=== PATIENT | female | born 1960 | race Caucasian/White ===

== ENCOUNTER 2019-05-12 08:31 | Outpatient (CLI) | payer OTHER, SELFPAY ==
--- NOTE | ~2019-05-12 | MM_ITS ---
EXAMINATION: MM screening bunny BI w jonathan HISTORY: Screening mammogram, family history of breast cancer in her sister. TECHNIQUE: Craniocaudal and mediolateral oblique 3-D tomosynthesis images were obtained and synthetic 2-D images were generated. CAD analysis was submitted and interpreted. COMPARISON: 04/29/2018, 04/23/2017, 04/10/2016 BREAST PARENCHYMAL COMPOSITION: There are scattered areas of fibroglandular density. FINDINGS: There is no evidence of suspicious mass, calcification, or architectural distortion to sugg est malignancy in either breast. There has been no suspicious interval change. IMPRESSION: 1. No mammographic evidence of malignancy. 2. Recommend routine screening mammography in one year. BI-RADS Category 1: Negative Reviewed, dictated and finalized at location A.
== END 2019-05-12 08:32 | disposition home or self-care (01) ==
LOC: ANHIMG 08:35
PROVIDERS: PCP Family Medicine; Visit Provider Family Medicine
DX: Z12.31 Encounter for screening mammogram for malignant neoplasm of breast (principal)
CPT/HCPCS: 77063; 77067

== ENCOUNTER 2020-08-16 08:04 | Outpatient (CLI) | payer OTHER, SELFPAY ==
--- NOTE | ~2020-08-16 | MM_ITS ---
EXAMINATION: MM screening bunny BI w jonathan HISTORY: Screening mammogram, family history of breast cancer in her sister. TECHNIQUE: Craniocaudal and mediolateral oblique 3-D tomosynthesis images were obtained and synthetic 2-D images were generated. CAD analysis was submitted and interpreted. COMPARISON: 05/12/2019, 04/29/2018, 04/23/2017 BREAST PARENCHYMAL COMPOSITION: There are scattered areas of fibroglandular density. FINDINGS: There is no evidence of suspicious mass, calcification, or architectural distortion to sugg est malignancy in either breast. There has been no suspicious interval change. IMPRESSION: 1. No mammographic evidence of malignancy. 2. Recommend routine screening mammography in one year. BI-RADS Category 1: Negative Reviewed, dictated and finalized at location A.
== END 2020-08-16 08:05 | disposition home or self-care (01) ==
PROVIDERS: PCP Family Medicine; Visit Provider Physician Assistant
DX: Z12.31 Encounter for screening mammogram for malignant neoplasm of breast (principal)
CPT/HCPCS: 77063; 77067

== ENCOUNTER 2020-12-08 01:03 | Day surgery (SDC) | payer OTHER, SELFPAY ==
[2020-11-26 12:38] VITALS: BMI 25.2
[2020-12-08 07:03] VITALS: BP 115/65; PULSE 80; RESP 18; TEMP 36.1; O2SAT 96; BMI 25.9
[2020-12-08] MEDS: LACTATED RINGERS 1,000 ML 150 ML IV CONT (07:08)
--- NOTE | 2020-12-08 07:09 | WPDGICN ---
Assessment and Plan Assessment and plan (1) FHx: colon cancer: Code(s): Z80.0 - Family history of malignant neoplasm of digestive organs Status: Acute Assessment and Plan: Patient has a family history of colon cancer in both her father and paternal grandmother. Plan is for surveillance colonoscopy at this time in at least 5 year intervals in the future. (2) History of colon polyps: Code(s): Z86.010 - Personal history of colonic polyps Status: Acute Assessment and Plan: Patient has a prior history of adenomatous colon polyps removed in 3 previous colonoscopy. Most recent colonoscopy 2017. Plan is for surveillance colonoscopy at this time. Further recommendations will be given after endoscopy. GI Consult Note Consult date/time: 12/08/20 07:09 HPI: Chanell Whitney is a 60 year old female Presents for screening colonoscopy. Patient has had several speech previous colonoscopies and has had polyps on each of them. Most recent colonoscopy 2017. Patient reports that her current weight appetite bowel movements are normal. She denies abdominal pain. She has had no bleeding. Family history is significant her father and paternal grandmother have had colon cancer. Patient desires neoplasia screening. Review of Systems Review of Systems: All systems reviewed & are unremarkable except as noted in HPI and below PMFSH Past Medical History Medical History Arthralgia Chronic neck pain with history of cervical spinal surgery ROLO (generalized anxiety disorder) Hep C w/o coma, chronic Hep C w/o coma, chronic History of alcohol abuse Hx of drug abuse Hypothyroid obesity Hypothyroidism Surgical History Surgical History H/O excision of lamina of cervical vertebra for decompression of spinal cord History of tonsillectomy Family History Family History Father Carcinoma of colon Family history of diabetes mellitus in first degree relative Family history of coronary artery disease Mother Family history of malignant neoplasm of breast in first degree relative Social History Social History (Updated 10/16/20 @ 17:02 by Griselda Bob) Social History: Smoking status: Former smoker Tobacco type: cigarettes Second hand tobacco smoke exposure: Yes Smoking end date: 04/20/07 Alcohol intake: former Alcohol use details: occasionally Substance use: never Substance use type: does not use Living arrangements: with family Gender identity (if verbalized by the patient): Female Sexual Orientation (if Verbalized by the Patient): Straight or Heterosexual Spiritual care concerns: No Meds Home Medications and Allergies Home Medications Medication Instructions Recorded Confirmed Type lorazepam 0.5 mg tablet 0.5 mg PO BID PRN #60 tablet 02/22/19 12/08/20 Rx diclofenac sodium 1 % topical gel 2 g TOPICAL QID #100 g 01/03/20 12/08/20 Rx lisinopril 5 mg tablet 5 mg PO DAILY #90 tablet 06/25/20 12/08/20 Rx levothyroxine 112 mcg tablet 112 mcg PO DAILY #90 tablet 07/10/20 12/08/20 Rx Allergies Allergy/AdvReac Type Severity Reaction Status Date / Time atorvastatin Allergy Unknown Muscle Verified 12/08/20 06:59 Spasms pregabalin Allergy Unknown Unknown Verified 12/08/20 06:59 Vital Signs Vital Signs - 24 hr 12/08/20 07:03 Temperature 97 F L Pulse Rate 80 Respiratory Rate 18 Blood Pressure 115/65 Pulse Oximetry 96 Exam Narrative: Physical exam reveals patient to be alert. Vital signs are stable. HEENT exam is unremarkable. Patient is anicteric. Lungs are clear to auscultation and percussion. Heart is without murmur or extra sounds. Abdominal exam bowel sounds are present soft nontender with no organomegaly. Digital external rectal exam is normal.
--- NOTE | 2020-12-08 07:10 | WPDANESEPPF ---
Anes - Initial Pre Proc Eval Procedure: Operation Date: 12/08/20 08:00 Proposed Procedures p Screening Colonoscopy - Mauricio Lockett MD Date/Time: 12/08/20 07:10 Surgeon: Mauricio Lockett MD Pre Op Diagnosis: neoplasm screening, family hx of colon cancer Patient Data Age: 60 Gender: F Height: 1.5 m Weight: 58.2 kg Last Vital Signs Temp 36.1 C L 12/08/20 07:03 Pulse 80 12/08/20 07:03 Resp 18 12/08/20 07:03 BP 115/65 12/08/20 07:03 Pulse Ox 96 12/08/20 07:03 Allergies Allergy/AdvReac Type Severity Reaction Status Date / Time atorvastatin Allergy Unknown Muscle Verified 12/08/20 06:59 Spasms pregabalin Allergy Unknown Unknown Verified 12/08/20 06:59 Home Medications Medication Instructions Recorded Confirmed Type lorazepam 0.5 mg tablet 0.5 mg PO BID PRN #60 tablet 02/22/19 12/08/20 Rx diclofenac sodium 1 % topical gel 2 g TOPICAL QID #100 g 01/03/20 12/08/20 Rx lisinopril 5 mg tablet 5 mg PO DAILY #90 tablet 06/25/20 12/08/20 Rx levothyroxine 112 mcg tablet 112 mcg PO DAILY #90 tablet 07/10/20 12/08/20 Rx Patient hx anesthesia problems: none Family hx anesthesia problems: none Results Review: All pre-operative results and documents have been reviewed as part of the pre-operative evaluation. COUNTS INCLUDE 234 BEDS AT THE [facility] Past Medical History Medical History Arthralgia Chronic neck pain with history of cervical spinal surgery ROLO (generalized anxiety disorder) Hep C w/o coma, chronic Hep C w/o coma, chronic History of alcohol abuse Hx of drug abuse Hypothyroid obesity Hypothyroidism Surgical History Surgical History H/O excision of lamina of cervical vertebra for decompression of spinal cord History of tonsillectomy Family History Family History Father Carcinoma of colon Family history of diabetes mellitus in first degree relative Family history of coronary artery disease Mother Family history of malignant neoplasm of breast in first degree relative Social History Social History Social History: Smoking status: Former smoker Tobacco type: cigarettes Second hand tobacco smoke exposure: Yes Smoking end date: 04/20/07 Alcohol intake: former Alcohol use details: occasionally Substance use: never Substance use type: does not use Living arrangements: with family Gender identity (if verbalized by the patient): Female Sexual Orientation (if Verbalized by the Patient): Straight or Heterosexual Spiritual care concerns: No Anes - Eval Final PreProcedure Day of Procedure 12/08/20 07:10 Patient weight: overweight Heart: regular rate and rhythm Lungs: clear to auscultation Airway: Mallampati scale class II Neurological: alert and oriented Last oral intake: >/= 8 hours ASA classification: III Emergent: no Anesthetic plan: proceed Anesthesia type and monitoring: general GIVS and standard monitoring Results Review: All pre-operative results and documents have been reviewed as part of the pre-operative evaluation. Informed Consent: The patient's anesthetic plan and its attendant risks and benefits were discussed with the patient/family/POA. Questions were solicited and answers provided to the satisfaction of the patient/family/POA.
[2020-12-08 08:18] VITALS: BP 102/62; PULSE 73; RESP 21; O2SAT 100
[2020-12-08 08:28] VITALS: BP 125/80; PULSE 92; RESP 29; O2SAT 100
[2020-12-08 08:38] VITALS: BP 115/79; PULSE 70; RESP 18; O2SAT 100
== END 2020-12-08 08:49 | disposition home or self-care (01) ==
PROVIDERS: PCP Family Medicine; Visit Provider Internal Medicine Gastroenterology
PROC: 0DJD8ZZ Inspection of Lower Intestinal Tract, Via Natural or Artificial Opening Endoscopic (ICD-10-PCS; CPT 45378; principal; 2020-12-08 08:00)
DX: Z12.11 Encounter for screening for malignant neoplasm of colon (principal); Z80.0 Family history of malignant neoplasm of digestive organs; K63.5 Polyp of colon; D12.7 Benign neoplasm of rectosigmoid junction; D12.2 Benign neoplasm of ascending colon; D12.4 Benign neoplasm of descending colon; F41.1 Generalized anxiety disorder; B18.2 Chronic viral hepatitis C; E03.9 Hypothyroidism, unspecified; Z87.891 Personal history of nicotine dependence
CPT/HCPCS: 45385; 88305; J2001; J2704; J7120

== ENCOUNTER 2021-06-11 00:48 | Day surgery (SDC) | payer OTHER, SELFPAY ==
[2021-06-01 13:16] VITALS: BMI 28.0
[2021-06-11 10:10] VITALS: BP 127/67; PULSE 70; RESP 18; TEMP 36.8; O2SAT 100; BMI 27.8
[2021-06-11] MEDS: LACTATED RINGERS 1,000 ML 150 ML IV CONT (10:26)
--- NOTE | 2021-06-11 11:01 | WPDANESEPPF ---
Anes - Initial Pre Proc Eval Procedure: Operation Date: 06/11/21 11:00 Proposed Procedures p Esophagogastroduodenoscopy - Mauricio Lockett MD Date/Time: 06/11/21 11:01 Surgeon: Mauricio Lockett MD Pre Op Diagnosis: GERD Patient Data Age: 61 Gender: F Height: 1.47 m Weight: 60.3 kg Last Vital Signs Temp 98.3 F 06/11/21 10:10 Pulse 70 06/11/21 10:10 Resp 18 06/11/21 10:10 BP 127/67 06/11/21 10:10 Pulse Ox 100 06/11/21 10:10 Allergies Allergy/AdvReac Type Severity Reaction Status Date / Time atorvastatin Allergy Unknown Muscle Verified 06/11/21 10:18 Spasms pregabalin Allergy Unknown Unknown Verified 06/11/21 10:18 Home Medications Medication Instructions Recorded Confirmed Type lorazepam 0.5 mg tablet 0.5 mg PO BID PRN #60 tablet 02/22/19 06/11/21 Rx levothyroxine 112 mcg tablet 112 mcg PO DAILY #90 tablet 12/24/20 06/11/21 Rx diclofenac sodium 1 % topical gel 2 g TOPICAL QID #100 g 05/04/21 06/11/21 Rx pantoprazole 40 mg tablet,delayed 40 mg PO QAM #30 tablet 05/05/21 06/11/21 Rx release lorazepam 0.5 mg tablet 0.5 mg PO BID PRN #60 tablet 05/06/21 06/11/21 Rx celecoxib 200 mg PO DAILY 06/01/21 06/11/21 History lisinopril [Zestril] 5 mg PO DAILY 06/01/21 06/11/21 History Patient hx anesthesia problems: none Family hx anesthesia problems: none Results Review: All pre-operative results and documents have been reviewed as part of the pre-operative evaluation. [facility] Past Medical History Medical History Arthralgia Chronic neck pain with history of cervical spinal surgery ROLO (generalized anxiety disorder) Hep C w/o coma, chronic Hep C w/o coma, chronic History of alcohol abuse Hx of drug abuse Hypothyroid obesity Hypothyroidism Surgical History Surgical History H/O excision of lamina of cervical vertebra for decompression of spinal cord History of tonsillectomy Family History Family History Father Carcinoma of colon Family history of diabetes mellitus in first degree relative Family history of coronary artery disease Mother Family history of malignant neoplasm of breast in first degree relative Social History Social History (Updated 05/05/21 @ 16:00 by Griselda Bob) Social History: Smoking status: Former smoker Tobacco type: cigarettes Second hand tobacco smoke exposure: Yes Smoking end date: 04/20/07 Alcohol intake: former Alcohol use details: occasionally Substance use: former Substance use type: heroin Other substance usage details: recovering heroin addict Last use: 26 years ago Living arrangements: with family Gender identity (if verbalized by the patient): Female Sexual Orientation (if Verbalized by the Patient): Straight or Heterosexual Spiritual care concerns: No Anes - Eval Final PreProcedure Day of Procedure 06/11/21 11:01 Patient weight: normal Heart: regular rate and rhythm Lungs: clear to auscultation Airway: Mallampati scale class II Neurological: alert and oriented Last oral intake: >/= 8 hours ASA classification: III Emergent: no Anesthetic plan: proceed Anesthesia type and monitoring: general GIVS and standard monitoring Results Review: All pre-operative results and documents have been reviewed as part of the pre-operative evaluation. Informed Consent: The patient's anesthetic plan and its attendant risks and benefits were discussed with the patient/family/POA. Questions were solicited and answers provided to the satisfaction of the patient/family/POA.
--- NOTE | 2021-06-11 11:03 | WPDGICN ---
Assessment and Plan Assessment and plan (1) Atypical chest pain: Code(s): R07.89 - Other chest pain Status: Acute Assessment and Plan: patient with atypical chest pain potentially related to acid reflux. History is difficult to be certain of the etiology. An EGD to assess pain is anticipated. (2) GERD (gastroesophageal reflux disease): Code(s): K21.9 - Gastro-esophageal reflux disease without esophagitis Status: Acute Assessment and Plan: Patient reports some regurgitation that is suspicious for acid reflux. She appears to have a component of dysphagia as well. Plan is for EGD to assess more thoroughly. Agree with trial of pantoprazole daily. (3) History of colon polyps: Code(s): Z86.010 - Personal history of colonic polyps Status: Acute Assessment and Plan: Patient has a history of colon polyps in 2020. Plan is for surveillance colonoscopy at 5 year intervals. (4) FHx: colon cancer: Code(s): Z80.0 - Family history of malignant neoplasm of digestive organs Status: Acute GI Consult Note Consult date/time: 06/11/21 11:03 HPI: Chanell Whitney is a 61 year old female Presents for EGD. Patient reports intense chest pain several months ago. Since that time she has had regurgitation. Has had some difficulty swallowing she. She states food will catch in hang up in the mid chest. She reports phlegm that regurgitates frequently. The history is somewhat difficult to obtain but may have improved after a trial of pantoprazole over the last 1 month. An EGD is requested to further define and exclude acid reflux contributing to her symptoms. Apparently a myocardial infarction was excluded by EKG. Review of Systems Review of Systems: All systems reviewed & are unremarkable except as noted in HPI and below PMFSH Past Medical History Medical History Arthralgia Chronic neck pain with history of cervical spinal surgery ROLO (generalized anxiety disorder) Hep C w/o coma, chronic Hep C w/o coma, chronic History of alcohol abuse Hx of drug abuse Hypothyroid obesity Hypothyroidism Surgical History Surgical History H/O excision of lamina of cervical vertebra for decompression of spinal cord History of tonsillectomy Family History Family History Father Carcinoma of colon Family history of diabetes mellitus in first degree relative Family history of coronary artery disease Mother Family history of malignant neoplasm of breast in first degree relative Social History Social History (Updated 05/05/21 @ 16:00 by Griselda Bob) Social History: Smoking status: Former smoker Tobacco type: cigarettes Second hand tobacco smoke exposure: Yes Smoking end date: 04/20/07 Alcohol intake: former Alcohol use details: occasionally Substance use: former Substance use type: heroin Other substance usage details: recovering heroin addict Last use: 26 years ago Living arrangements: with family Gender identity (if verbalized by the patient): Female Sexual Orientation (if Verbalized by the Patient): Straight or Heterosexual Spiritual care concerns: No Meds Home Medications and Allergies Home Medications Medication Instructions Recorded Confirmed Type lorazepam 0.5 mg tablet 0.5 mg PO BID PRN #60 tablet 02/22/19 06/11/21 Rx levothyroxine 112 mcg tablet 112 mcg PO DAILY #90 tablet 12/24/20 06/11/21 Rx diclofenac sodium 1 % topical gel 2 g TOPICAL QID #100 g 05/04/21 06/11/21 Rx pantoprazole 40 mg tablet,delayed 40 mg PO QAM #30 tablet 05/05/21 06/11/21 Rx release lorazepam 0.5 mg tablet 0.5 mg PO BID PRN #60 tablet 05/06/21 06/11/21 Rx celecoxib 200 mg PO DAILY 06/01/21 06/11/21 History lisinopril [Zestril] 5 mg PO DAILY 06/01/21 06/11/21 History Allergies
[2021-06-11] MEDS: BENZOCAINE (*SP) 60 ML SPRAY CAN (HURRICAINE) 1 SPRAY MUCOUS MEM (11:16)
[2021-06-11 11:26] VITALS: BP 111/83; PULSE 84; RESP 24; O2SAT 100
[2021-06-11 11:36] VITALS: BP 116/71; PULSE 78; RESP 16; O2SAT 100
[2021-06-11 11:46] VITALS: BP 116/78; PULSE 76; RESP 18; O2SAT 100
--- NOTE | 2021-06-11 11:52 | SUR.PHASEII ---
1148 DR SALAS NOTIFIED OF POSITIVE H PYLORI RESULTS. DR SALAS TO WRITE A PRESCRIPTION FOR PT
== END 2021-06-11 12:00 | disposition home or self-care (01) ==
PROVIDERS: PCP Family Medicine; Visit Provider Internal Medicine Gastroenterology
PROC: 0DJ08ZZ Inspection of Upper Intestinal Tract, Via Natural or Artificial Opening Endoscopic (ICD-10-PCS; CPT 43235; principal; 2021-06-11 11:00)
DX: K21.9 Gastro-esophageal reflux disease without esophagitis (principal); R13.10 Dysphagia, unspecified; R07.89 Other chest pain; Z80.0 Family history of malignant neoplasm of digestive organs; Z86.010 Personal history of colon polyps; E03.9 Hypothyroidism, unspecified; B18.2 Chronic viral hepatitis C; F41.1 Generalized anxiety disorder; Z87.891 Personal history of nicotine dependence; F11.21 Opioid dependence, in remission
CPT/HCPCS: 43239; 43450; 87081; J2704; J7120

== ENCOUNTER 2021-12-04 17:10 | Outpatient (CLI) | payer OTHER, SELFPAY ==
--- NOTE | ~2021-12-04 | XR_ITS ---
EXAMINATION: XR hip RT min 2V DATE: 12/04/2021 17:28 INDICATION: Right hip pain. TECHNIQUE: 3 views of right hip were obtained. COMPARISON: None. FINDINGS: There is lumbar levocurvature and severe lower lumbar spondylosis. No fracture. There is mi ld right hip osteoarthritis. IMPRESSION: 1. Mild right hip osteoarthritis. Reviewed, dictated and finalized at location A.
== END 2021-12-04 17:11 | disposition home or self-care (01) ==
LOC: ANHIMG 17:12
PROVIDERS: PCP Family Medicine; Visit Provider Nurse Practitioner Gerontology
DX: M16.11 Unilateral primary osteoarthritis, right hip (principal)
CPT/HCPCS: 73502

== ENCOUNTER 2022-02-13 10:58 | Outpatient (CLI) | payer OTHER, SELFPAY ==
--- NOTE | ~2022-02-13 | MM_ITS ---
EXAMINATION: MM screening bunny BI w jonathan HISTORY: Screening TECHNIQUE: Craniocaudal and mediolateral oblique 3-D tomosynthesis images were obtained and synthetic 2-D images were generated. CAD analysis was submitted and interpreted. COMPARISON: Comparison to multiple prior studies sequentially, with oldest reviewed study dated 04/02. BREAST PARENCHYMAL COMPOSITION: There are scattered areas of fibroglandular density. FINDINGS: There is no evidence of suspicious mass, calcification, or architectural distortion to sugg est malignancy in either breast. There has been no suspicious interval change. IMPRESSION: 1. No mammographic evidence of malignancy. 2. Recommend routine screening mammography in one year. BI-RADS Category 1: Negative Reviewed, dictated and finalized at location B. [employer]
== END 2022-02-13 10:59 | disposition home or self-care (01) ==
LOC: ANHIMG 11:00
PROVIDERS: PCP Family Medicine; Visit Provider Nurse Practitioner Gerontology
DX: Z12.31 Encounter for screening mammogram for malignant neoplasm of breast (principal)
CPT/HCPCS: 77063; 77067

== ENCOUNTER 2022-07-30 16:42 | Outpatient (CLI) | payer OTHER, SELFPAY ==
--- NOTE | ~2022-07-30 | XR_ITS ---
EXAMINATION: XR shoulder RT min 2V DATE: 07/30/2022 17:09 INDICATION: Right shoulder pain. TECHNIQUE: 4 views of right shoulder were obtained. COMPARISON: None. FINDINGS: Bone alignment is normal. No fracture. There is mild osteoarthritis of glenohumeral joint a nd severe osteoarthritis of acromioclavicular joint. There are changes of anterior and posterior fusi on procedures in cervical spine. IMPRESSION: 1. Polyarticular osteoarthritis. Reviewed, dictated and finalized at location E.
== END 2022-07-30 16:43 | disposition home or self-care (01) ==
PROVIDERS: PCP Family Medicine; Visit Provider Family Medicine
DX: M19.011 Primary osteoarthritis, right shoulder (principal)
CPT/HCPCS: 73030

== ENCOUNTER 2023-06-24 07:28 | Outpatient (CLI) | payer OTHER, SELFPAY ==
--- NOTE | ~2023-06-24 | MM_ITS ---
EXAMINATION: MM screening bunny BI w jonathan HISTORY: Screening TECHNIQUE: Craniocaudal and mediolateral oblique 3-D tomosynthesis images were obtained and synthetic 2-D images were generated. CAD analysis was submitted and interpreted. COMPARISON: Comparison to multiple prior studies sequentially, with oldest reviewed study dated 09/2019. BREAST PARENCHYMAL COMPOSITION: Not dense: There are scattered areas of fibroglandular density. FINDINGS: There is no evidence of suspicious mass, calcification, or architectural distortion to sugg est malignancy in either breast. There has been no suspicious interval change. IMPRESSION: 1. No mammographic evidence of malignancy. 2. Recommend routine screening mammography in one year. BI-RADS Category 1: Negative Reviewed, dictated and finalized at location B.
== END 2023-06-24 07:29 | disposition home or self-care (01) ==
LOC: ANHIMG 07:31
PROVIDERS: PCP Family Medicine; Visit Provider Physician Assistant
DX: Z12.31 Encounter for screening mammogram for malignant neoplasm of breast (principal)
CPT/HCPCS: 77063; 77067

== ENCOUNTER 2024-04-30 07:49 | Outpatient (NON) | payer OTHER, SELFPAY ==
--- OUTSIDE RECORDS SUMMARY | 2024-05-01 07:57 | XMS_ITS | Patient Health Summary ---
Author Organization [facility] Address [address] [place] [address] Care Team Providers Care Neurology Manager Name Role Phone Jayla Gaxiola MD Primary Care Provider + Note from [facility],non-owned Affiliates and Associated Physician Practices is amultiple site organization consisting of ambulatory clinics and hospital sitesin [place], [place], [place] and [place]. This disclosure is being madepursuant to the Care Everywhere program and may not contain all information available regarding this patient. Last updated 17.[facility] Social History Tobacco Use Types Packs/Day Years Used Date Smoking Tobacco: Never Assessed Sex and Gender Information Value Date Recorded Sex Assigned at Not on file Gender Identity Not on file Sexual Orientation Not on file Care Teams Neurology Manager Relationship Specialty Start Date End Date Jayla Gaxiola MD [address] [facility] [address] [place] [address] PCP - General 05/20/09
--- OUTSIDE RECORDS SUMMARY | 2024-05-01 07:57 | XMS_ITS | Clinical Summary ---
Author Organization [facility] Address [address] [facility] [place] [address] Care Team Providers Care Brusher Machine Name Role Phone Jayla Gaxiola MD Primary Care Provider + Source Comments [facility],non-owned Affiliates and Associated Physician Practices is amultiple site organization consisting of ambulatory clinics and hospital sitesin [place], [place] and [place]. This disclosure is being madepursuant to the Care Everywhere program and may not contain all information available regarding this patient. Last updated 17.[facility] [employer] Social History Tobacco Use Types Packs/Day Years [...] age to complete this topic Care Teams Brusher Machine Relationship Specialty Start Date End Date Jayla Gaxiola MD [address] [place] [address] PCP - General 05/20/09
--- OUTSIDE RECORDS SUMMARY | 2024-05-01 07:57 | XMS_ITS | Clinical Summary ---
Author Organization [facility] [address] [place] [phone] Care Team Providers Care Asphalt Tar And Gravel Roofer Name Role Phone Jayla Gaxiola MD Primary [...] taken. Assessment & Plan (04/06/2018 2:09 PM CONSULTING PRACTICE MANAGER): Your goal of treatment is to keep TSH , T3 and T4 within normal range. Options of treatment, include LT 4 ( levothyroxine ) ,combination LT 4 plus T3 ( Levothyroxine + Liothyronine ) and natural hormonal preparations, including [place], Westhroid, etc. Well conducted clinical studies have not shown any difference in outcomes, in terms of symptoms when comparing these different options. Some patients Taking one or other form of treatment still manifest a variety of symptoms, in spite of normal thyroid hormone levels. At an individual levels, some patient feel better with some specific preparation, including [place]. However, many symptoms persist in patient, regardless [...] 01/12/2018 Assessment & Plan (01/12/2018 4:41 PM CONSULTING PRACTICE MANAGER): As indicated by a elevated TPO antibodies [...] on file Legal Sex Female 3:19 PM CONSULTING PRACTICE MANAGER Gender Identity Not on file Sexual Orientation [...] Plan of Treatment Not on file Insurance [employer] OPEN ACCESS Care Teams Asphalt Tar And Gravel Roofer Relationship Specialty Start Date End Date Jayla Gaxiola MD [address] [facility] [address] [place] [address] PCP - General Family Medicine 01/06/18
--- OUTSIDE RECORDS SUMMARY | 2024-05-01 07:57 | XMS_ITS | Referral Summary ---
Author Organization [facility] [address] [place] [phone] Care Team Providers Care Insurance Risk Surveyor Name Role Phone Jayla Gaxiola MD Primary [...] taken. Assessment & Plan (04/06/2018 2:09 PM TRANSCRIBING MACHINE MECHANIC): Your goal of treatment is to keep TSH , T3 and T4 within normal range. Options of treatment, include LT 4 ( levothyroxine ) ,combination LT 4 plus T3 ( Levothyroxine + Liothyronine ) and natural hormonal preparations, including [place], Westhroid, etc. Well conducted clinical studies have not shown any difference in outcomes, in terms of symptoms when comparing these different options. Some patients Taking one or other form of treatment still manifest a variety of symptoms, in spite of normal thyroid hormone levels. At an individual levels, some patient feel better with some specific preparation, including [place]. However, many symptoms persist in patient, regardless [...] 01/12/2018 Assessment & Plan (01/12/2018 4:41 PM TRANSCRIBING MACHINE MECHANIC): As indicated by a elevated TPO antibodies [...] on file Legal Sex Female 3:19 PM TRANSCRIBING MACHINE MECHANIC Gender Identity Not on file Sexual Orientation [...] Plan of Treatment Not on file Insurance [employer] OPEN ACCESS Care Teams Insurance Risk Surveyor Relationship Specialty Start Date End Date Jayla Gaxiola MD [address] [facility] [address] [place] [address] PCP - General Family Medicine 01/06/18
--- OUTSIDE RECORDS SUMMARY | 2024-05-01 07:57 | XMS_ITS | Referral Summary ---
Author Organization [facility] Address [address] [facility] [place] [address] Care Team Providers Care Personal Computer Specialist Name Role Phone Jayla Gaxiola MD Primary Care Provider + Source Comments [facility],non-owned Affiliates and Associated Physician Practices is amultiple site organization consisting of ambulatory clinics and hospital sitesin [place], [place], [place] and [place]. This disclosure is being madepursuant to the Care Everywhere program and may not contain all information available regarding this patient. Last updated 17.[facility] Social History Tobacco Use Types Packs/Day Years Used Date Smoking Tobacco: Never Assessed Sex and Gender Information Value Date Recorded Sex Assigned at Not on file Gender Identity Not on file Sexual Orientation Not on file Plan of Treatment Not on file Care Teams Personal Computer Specialist Relationship Specialty Start Date End Date Jayla Gaxiola MD [address] [facility] [address] [place] [address] [facility] - General 05/20/09
== END 2024-04-30 07:50 | disposition home or self-care (01) ==
PROVIDERS: PCP Family Medicine; Visit Provider Internal Medicine Gastroenterology
DX: D12.2 Benign neoplasm of ascending colon (principal); D12.3 Benign neoplasm of transverse colon
CPT/HCPCS: 88305

== ENCOUNTER 2024-04-30 09:39 | Day surgery (SDC) | payer OTHER, SELFPAY ==
[2024-02-06 07:42] VITALS: BMI 28.8
--- NOTE | 2024-04-30 07:01 | P.PNAN_ITS ---
Anes - Initial Pre Proc Eval Procedure: Operation Date: 04/30/24 11:30 Proposed Procedures p Diagnostic Colonoscopy - Phil Hill MD Date/Time: 04/30/24 07:01 Surgeon: Phil Hill MD Pre Op Diagnosis: Family HX of Colon Cancer. Personal HX of Polyps. Patient Data Age: 64 Gender: F Height: 1.47 m Weight: 59 kg Allergies Allergy/AdvReac Type Severity Reaction Status Date / Time atorvastatin Allergy Unknown Muscle Verified 04/30/24 10:33 Spasms pregabalin Allergy Unknown Unknown Verified 04/30/24 10:33 Home Medications ?Medication ?Instructions ?Recorded ?Confirmed ?Type diclofenac sodium 1 % topical gel 2 g topical QID #100 grams 05/04/21 04/30/24 Rx lisinopril 5 mg tablet See Rx Instructions .Route 11/04/23 04/30/24 Rx .COMPLEX #90 tabs ezetimibe 10 mg tablet See Rx Instructions .Route 01/13/24 04/30/24 Rx .COMPLEX #90 tabs pravastatin 20 mg tablet See Rx Instructions .Route 02/15/24 04/30/24 Rx .COMPLEX #90 tabs lorazepam 0.5 mg tablet 0.5 mg PO BID PRN anxiety #60 tabs 03/09/24 04/30/24 Rx levothyroxine 100 mcg tablet See Rx Instructions .Route 04/06/24 04/30/24 Rx .COMPLEX #90 tabs omega 4-[id number]-fish oil 1,000 mg 1 cap PO DAILY 04/11/24 04/30/24 History (120 mg-180 mg) capsule (Fish Oil) Patient hx anesthesia problems: none Family hx anesthesia problems: none Results Review: All pre-operative results and documents have been reviewed as part of the pre- operative evaluation. [facility] Past Medical History Medical History Hypothyroidism ROLO (generalized anxiety disorder) History of alcohol abuse Hx of drug abuse Hep C w/o coma, chronic Hypothyroid obesity Chronic neck pain with history of cervical spinal surgery Hep C w/o coma, chronic Arthralgia Surgical History Surgical History History of tonsillectomy H/O excision of lamina of cervical vertebra for decompression of spinal cord Family History Family History Father Carcinoma of colon Family history of diabetes mellitus in first degree relative Family history of coronary artery disease Mother Family history of malignant neoplasm of breast in first degree relative Social History Social History Social History: Smoking status: Former smoker Tobacco type: cigarettes Second hand tobacco smoke exposure: Yes Smoking end date: 04/20/07 Additional smoking assessment comments: quit 17 years ago Alcohol intake: current Drinks per week: 1 Alcohol use details: occasionally Substance use: former Substance use type: does not use Other substance usage details: recovering heroin addict Last use: 26 years ago Lack of Transportation: No Lack of Food: Never True Current Housing: I Have Housing Concerned About Future Housing: No Difficulty Paying Gas/Electric Bills: No Difficulty Paying for Meds: No Currently Unemployed: No Education: Decline to Answer Difficulty w/ Childcare or Family Care: No Living arrangements: with family Occupation/Education: occupation Gender identity (if verbalized by the patient): Female Sexual Orientation (if Verbalized by the Patient): Straight or Heterosexual Spiritual care concerns: No Anes - Eval Final PreProcedure Day of Procedure 04/30/24 07:01 Patient weight: overweight Heart: regular rate and rhythm Lungs: clear to auscultation Airway: Mallampati scale class II Neurological: alert and oriented Last oral intake: >/= 8 hours ASA classification: III Emergent: no Anesthetic plan: proceed Anesthesia type and monitoring: general GIVS and standard monitoring Results Review: All pre-operative results and documents have been reviewed as part of the pre- operative evaluation. Informed Consent: The patient's anesthetic plan and its attendant risks and benefits were discussed with the patient/family/POA. Questions were solicited and answers provided to the satisfaction of the patient/family/POA.
[2024-04-30 10:30] VITALS: BP 119/82; PULSE 89; RESP 16; TEMP 36.9; O2SAT 99
[2024-04-30] MEDS: LACTATED RINGERS 1,000 ML 150 ML IV CONT (10:48)
--- OUTSIDE RECORDS SUMMARY | 2024-04-30 11:13 | XMS_ITS | Clinical Summary ---
[facility] Organization [facility] [address] [place] [phone] Care Team Providers Care Co Founder And Chief Strategy Officer Name Role Phone Jayla Gaxiola MD Primary Care Provider Allergies No known active allergies Medications levothyroxine (SYNTHROID, LEVOTHROID) 100 mcg tablet Take one tablet daily 90 tablet 2 02/07/2018 Active atorvastatin (LIPITOR) 20 mg tablet Take 1 tablet (20 mg total) by mouth daily. 30 tablet 11 04/06/2018 Active Active Problems Problem Noted Date Diagnosed Date Pure hypercholesterolemia 05/18/2018 Assessment & Plan (05/18/2018 3:32 PM CDT): Check fasting lipids Adjust lipitor as indicated. Postablative hypothyroidism 01/12/2018 Assessment & Plan (05/18/2018 3:32 PM CDT): Will check TSH and free T4 Will adjust dose of Levothyroxine accordingly . If there is a need to make changes, will recheck levels in 2-3 months. Instructions to patient on taking medication properly : in the morning, on an empty stomach , 1 h part from food and/or other meds. If any doses are missed, can take 2-3 tab together ,to make up for the missed dose; make sure at the end to the week, 7 tabs have been taken. Assessment & Plan (04/06/2018 2:09 PM FEED ELEVATOR WORKER): Your goal of treatment is to keep TSH , T3 and T4 within normal range. Options of treatment, include LT 4 ( levothyroxine ) ,combination LT 4 plus T3 ( Levothyroxine + Liothyronine ) and natural hormonal preparations, including Joaquin, Westhroid, etc. Well conducted clinical studies have not shown any difference in outcomes, in terms of symptoms when comparing these different options. Some patients Taking one or other form of treatment still manifest a variety of symptoms, in spite of normal thyroid hormone levels. At an individual levels, some patient feel better with some specific preparation, including Joaquin. However, many symptoms persist in patient, regardless of the form of treatment. Adjustments can always make to the dosages and the kind of preparation to use, as long as thyroid levels are within within range. Bringing the thyroid levels to supraphysiologic doses ( above normal ) is strongly recommended against , due to the high risk of side effects, including cardiac dysrhythmias ( irregular heart beat ) and bone density loss . Take your thyroid medication on empty stomach, preferably in the morning, 1 hour apart from food and other medications. Due to the narrow therapeutic range of Levothyroxine ( small changes in dose make a big difference on thyroid medication blood levels ) , brand name is strongly recommended. The medication should be taken daily. If one or more pills are missing in a week, they can be taken all together at once, making sure at the end of the week, all 7 tabs have been taken. I have advise Ms. Whitney to continue cytomel and to split it m 10 mcg is twice a day Continue Synthroid 100 mcg daily Will recheck thyroid function tests in 2 months and will adjust according Britany's thyroiditis 01/12/2018 Assessment & Plan (01/12/2018 4:41 PM FEED ELEVATOR WORKER): As indicated by a elevated TPO antibodies new I spoke to the patient that there is no specific treatment for this other done bringing the thyroid levels to normal range A thyroid ultrasound, shows a very atrophic gland today with multiple micro cysts without any dominant nodule over 1 cm in size. I explained to the patient that the ongoing thyroiditis sometimes causes discomfort and choking sensation around the neck Medical History Medical History Date Comments Hypothyroidism Britany's thyroiditis Family History Medical History Relation Name Comments Cancer Father colon Diabetes Father Hypertension Father Migraines Father Cancer Mother breast and stom ach Diabetes Sister Marielena Hypertension Sister Marielena Relation Name Status Comments Father Mother Sister Marielena Alive Social History Tobacco Use Types Packs/Day Years Used Date Smoking Tobacco: Never Alcohol Use Standard Drinks/Week Comments Yes 0 (1 standard drink = 0.6 oz pur e alcohol) PHQ-2 Answer Date Recorded PHQ-2 Score 0 10/26/2018 Personal Safety Answer Date Recorded Getting School Help Needed Not on file 05/20 Comments Unknown Sex and Gender Information Value Date Recorded Sex Assigned at Not on file Legal Sex Female 3:19 PM FEED ELEVATOR WORKER Gender Identity Not on file Sexual Orientation Not on file Obstetrics History Last Filed Vital Signs Vital Sign Reading Time Taken Comments Blood Pressure 118/80 05/18/2018 3:16 PM CDT Pulse 93 05/18/2018 3:16 PM CDT Temperature - - Respiratory Rate 12 05/18/2018 3:16 PM CDT Oxygen Saturation - - Inhaled Oxygen Concentration - - Weight 60.8 kg (134 lb) 05/18/2018 3:16 PM CDT Height 151.1 cm (4' 11.5 ) 05/18/2018 3:16 PM CD T Body Mass Index 26.61 05/18/2018 3:16 PM CDT Plan of Treatment Not on file Insurance Stat OPEN ACCESS Care Teams Co Founder And Chief Strategy Officer Relationship Specialty Start Date End Date Jayla Gaxiola MD [address] [facility] [address] [place] [address] PCP - General Family Medicine 01/06/18
--- OUTSIDE RECORDS SUMMARY | 2024-04-30 11:13 | XMS_ITS | Referral Summary ---
Author Organization [facility] [address] [place] [phone] Care Team Providers Care Petroleum Terminal Plant Operator Name Role Phone Jayla Gaxiola MD Primary [...] taken. Assessment & Plan (04/06/2018 2:09 PM QUEEN'S COUNSEL): Your goal of treatment is to keep TSH , T3 and T4 within normal range. Options of treatment, include LT 4 ( levothyroxine ) ,combination LT 4 plus T3 ( Levothyroxine + Liothyronine ) and natural hormonal preparations, including [place], Westhroid, etc. Well conducted clinical studies have not shown any difference in outcomes, in terms of symptoms when comparing these different options. Some patients Taking one or other form of treatment still manifest a variety of symptoms, in spite of normal thyroid hormone levels. At an individual levels, some patient feel better with some specific preparation, including [place]. However, many symptoms persist in patient, regardless [...] 01/12/2018 Assessment & Plan (01/12/2018 4:41 PM QUEEN'S COUNSEL): As indicated by a elevated TPO antibodies [...] discomfort and choking sensation around the neck Social History Tobacco Use Types Packs/Day Years [...] on file Legal Sex Female 3:19 PM QUEEN'S COUNSEL Gender Identity Not on file Sexual Orientation Not on file Last Filed Vital Signs Vital Sign Reading [...] Plan of Treatment Not on file Insurance [employer] OPEN ACCESS Care Teams Petroleum Terminal Plant Operator Relationship Specialty Start Date End Date Jayla Gaxiola MD [address] [facility] [[email or web address] [address] [place] [address] PCP - General Family Medicine 01/06/18
--- OUTSIDE RECORDS SUMMARY | 2024-04-30 11:13 | XMS_ITS | Referral Summary ---
Author Organization [facility] Address [address] [facility] [place] [address] Care Team Providers Care Patient Accounting Representative Name Role Phone Jayla Gaxiola MD Primary Care Provider + Source Comments [facility],non-owned Affiliates and Associated Physician Practices is amultiple site organization consisting of ambulatory clinics and hospital sitesin [place], [place], [place] and [place]. This disclosure is being madepursuant to the Care Everywhere program and may not contain all information available regarding this patient. Last updated 17.[facility] Social History Tobacco Use Types Packs/Day Years Used Date Smoking Tobacco: Never Assessed Sex and Gender Information Value Date Recorded Sex Assigned at Not on file Gender Identity Not on file Sexual Orientation Not on file Plan of Treatment Not on file Care Teams Patient Accounting Representative Relationship Specialty Start Date End Date Jayla Gaxiola MD [address] [facility] [address] [place] [address] [facility] - General 05/20/09
--- OUTSIDE RECORDS SUMMARY | 2024-04-30 11:13 | XMS_ITS | Patient Health Summary ---
Author Organization [facility] Address [address] [facility] [place] [address] Care Team Providers Care Medical Support Specialist Name Role Phone Jayla Gaxiola MD Primary Care Provider + Note from [facility],non-owned Affiliates and Associated Physician Practices is amultiple site organization consisting of ambulatory clinics and hospital sitesin [place], [place], [place] and [place]. This disclosure is being madepursuant to the Care Everywhere program and may not contain all information available regarding this patient. Last updated 17.[facility] Social History Tobacco Use Types Packs/Day Years Used Date Smoking Tobacco: Never Assessed Sex and Gender Information Value Date Recorded Sex Assigned at Not on file Gender Identity Not on file Sexual Orientation Not on file Care Teams Medical Support Specialist Relationship Specialty Start Date End Date Jayla Gaxiola MD [address] [facility] [address] [place] [address] PCP - General 05/20/09
--- OUTSIDE RECORDS SUMMARY | 2024-04-30 11:13 | XMS_ITS | Clinical Summary ---
Author Organization [facility] Address [address] [facility] [place] [address] Care Team Providers Care Wood Form Builder Name Role Phone Jayla Gaxiola MD Primary Care Provider + Source Comments [facility],non-owned Affiliates and Associated Physician Practices is amultiple site organization consisting of ambulatory clinics and hospital sitesin [place], [place], [place] and [place]. This disclosure is being madepursuant to the Care Everywhere program and may not contain all information available regarding this patient. Last updated 17.[facility] [employer] Social History Tobacco Use Types Packs/Day Years Used Date Smoking Tobacco: Never Assessed Sex and Gender Information Value Date Recorded Sex Assigned at Not on file Gender Identity Not on file Sexual Orientation Not on file Plan of Treatment Health Maintenance Due Date Last Done Comments COLOGUARD (AGES 45-75) - COL ON CA SCREENING 1961 COLON MONITORING 1961 COLONOSCOPY - COLON CA SCREENING 1961 CT COLONOGRAPHY - COLON CA SCREENING 1961 Colorectal Cancer Screening 1961 FIT - COLON CA SCREENING 1961 FLEX SIG - COLON CA SCREENING 1961 LIPID TESTING 1961 MAMMOGRAM 1961 PAP SMEAR 1961 HIV SCREENING 02/13/1976 HEPATITIS C SCREENING 02/08/1979 DTAP/TDAP/TD VACCINES (1 - Tdap) 02/13/1980 PNEUMOCOCCAL VACCINE 50+ (1 of 1 - PCV) 2011 ZOSTER VACCINE (1 of 2) 2011 COVID-19 VACCINE ( - 2023-2 5 season) 2023 INFLUENZA VACCINE (#1) 2023 DEPRESSION SCREENING 03/07/2024 Respiratory Syncytial Virus (RSV) Vaccine Pt: or over 60 yrs (1 - 1-dose 75+ series) 02/13/2036 HEPATITIS B VACCINE Aged Out No longe r eligible based on patient's age to complete this topic HIB VACCINE Aged Out No longer eligi ble based on patient's age to complete this topic HPV VACCINE Aged Out No longer eligi ble based on patient's age to complete this topic MENINGOCOCCAL (Group B) VACCINE Aged Out No longer eligible based on patient's age to complete this topic MENINGOCOCCAL VACCINE Aged Out No álvaro kevan eligible based on patient's age to complete this topic PNEUMOCOCCAL VACCINE Aged Out No long er eligible based on patient's age to complete this topic Care Teams Wood Form Builder Relationship Specialty Start Date End Date Jayla Gaxiola MD [address] [place] [address] PCP - General 05/20/09
--- NOTE | 2024-04-30 11:39 | PM.IMHP ---
H&P: HPI History of Present Illness Date/Time: 04/30/24 11:39 Chief Complaint: History of colon polyps Narrative: The patient has a history of colonic polyps, the last colonoscopy was in December 2020. She had multiple tubular adenomas and sessile serrated adenomas. , she has a family history of colorectal cancer in her grandfather and an uncle from the maternal side. Review of Systems Review of Systems: All systems reviewed & are unremarkable except as noted in HPI and below PMFSH Past Medical History Medical History Hypothyroidism ROLO (generalized anxiety disorder) History of alcohol abuse Hx of drug abuse Hep C w/o coma, chronic Hypothyroid obesity Chronic neck pain with history of cervical spinal surgery Hep C w/o coma, chronic Arthralgia Surgical History Surgical History History of tonsillectomy H/O excision of lamina of cervical vertebra for decompression of spinal cord Family History Family History Father Carcinoma of colon Family history of diabetes mellitus in first degree relative Family history of coronary artery disease Mother Family history of malignant neoplasm of breast in first degree relative Social History Social History Social History: Smoking status: Former smoker Tobacco type: cigarettes Second hand tobacco smoke exposure: Yes Smoking end date: 04/20/07 Additional smoking assessment comments: quit 17 years ago Alcohol intake: current Drinks per week: 1 Alcohol use details: occasionally Substance use: former Substance use type: does not use Other substance usage details: recovering heroin addict Last use: 26 years ago Lack of Transportation: No Lack of Food: Never True Current Housing: I Have Housing Concerned About Future Housing: No Difficulty Paying Gas/Electric Bills: No Difficulty Paying for Meds: No Currently Unemployed: No Education: Decline to Answer Difficulty w/ Childcare or Family Care: No Living arrangements: with family Occupation/Education: occupation Gender identity (if verbalized by the patient): Female Sexual Orientation (if Verbalized by the Patient): Straight or Heterosexual Spiritual care concerns: No Meds Home Medications and Allergies Home Medications ?Medication ?Instructions ?Recorded ?Confirmed ?Type diclofenac sodium 1 % topical gel 2 g topical QID #100 grams 05/04/21 04/30/24 Rx lisinopril 5 mg tablet See Rx Instructions .Route 11/04/23 04/30/24 Rx .COMPLEX #90 tabs ezetimibe 10 mg tablet See Rx Instructions .Route 01/13/24 04/30/24 Rx .COMPLEX #90 tabs pravastatin 20 mg tablet See Rx Instructions .Route 02/15/24 04/30/24 Rx .COMPLEX #90 tabs lorazepam 0.5 mg tablet 0.5 mg PO BID PRN anxiety #60 tabs 03/09/24 04/30/24 Rx levothyroxine 100 mcg tablet See Rx Instructions .Route 04/06/24 04/30/24 Rx .COMPLEX #90 tabs omega 6-odf-tsv-fish oil 1,000 mg 1 cap PO DAILY 04/11/24 04/30/24 History (120 mg-180 mg) capsule (Fish Oil) Allergies Allergy/AdvReac Type Severity Reaction Status Date / Time atorvastatin Allergy Unknown Muscle Verified 04/30/24 10:33 Spasms pregabalin Allergy Unknown Unknown Verified 04/30/24 10:33 Vital Signs Vital Signs - 24 hr 04/30/24 10:30 Temperature 98.4 F Pulse Rate 89 Respiratory Rate 16 Blood Pressure 119/82 Pulse Oximetry 99 Oxygen Delivery Room Air Exam Const: General: cooperative and healthy appearing Resp: Effort & Inspection: normal respiratory effort and able to speak in complete sentences Auscultation: clear to auscultation bilaterally Cardio: Rate: regular rate Rhythm: regular rhythm GI: Inspection: normal to inspection GI Palp: No No hepatosplenomegaly present Auscultation: normal bowel sounds Rectal Exam: deferred Skin: General skin exam: normal color Psych: Appearance: grossly normal Mental Status: mental status grossly normal Assessment and Plan Assessment and plan (1) FHx: colon cancer: Code(s): Z80.0 - Family history of malignant neoplasm of digestive organs Status: Acute Assessment and Plan: The patient is deemed a good candidate for the procedure. Consent signed. Will proceed. (2) History of colon polyps: Code(s): Z86.010 - Personal history of colon polyps Status: Acute
[2024-04-30 12:05] VITALS: BP 89/66; PULSE 78; RESP 14; O2SAT 98
[2024-04-30 12:15] VITALS: BP 110/73; PULSE 80; RESP 16; O2SAT 100
[2024-04-30 12:25] VITALS: BP 115/71; PULSE 78; RESP 16; O2SAT 100
--- NOTE | 2024-04-30 13:16 | WPDANESPN ---
Anes - Prog Note Post-Op Date/Time: 04/30/24 13:16 Cardiovascular status: normal Respiratory status: normal Airway patency: baseline Mental status: baseline Post-Op hydration status: normal Vital Signs: Last Vital Signs Temp 36.9 C 04/30/24 10:30 Pulse 78 04/30/24 12:25 Resp 16 04/30/24 12:25 BP 115/71 04/30/24 12:25 Pulse Ox 100 04/30/24 12:25 O2 Del Method Room Air 04/30/24 12:25 Pain Score (VAS): 0 I/O: Intake & Output 04/29/24 04/30/24 04/30/24 23:59 07:59 15:59 Intake Total 600 Balance 600 Post-procedural complaints: none Patient Feedback: Patient satisfied with anesthetic care. Other Findings: Patient vital signs back to baseline. Patient denies nausea and vomiting. Patient's pain under control. Patient OK for discharge.
== END 2024-04-30 12:56 | disposition home or self-care (01) ==
PROVIDERS: PCP Family Medicine; Referring Provider Internal Medicine Gastroenterology; Visit Provider Internal Medicine Gastroenterology
PROC: 0DJD8ZZ Inspection of Lower Intestinal Tract, Via Natural or Artificial Opening Endoscopic (ICD-10-PCS; CPT 45378; principal; 2024-04-30 11:30)
DX: Z12.11 Encounter for screening for malignant neoplasm of colon (principal); D12.2 Benign neoplasm of ascending colon; D12.3 Benign neoplasm of transverse colon; K63.5 Polyp of colon; K57.30 Diverticulosis of large intestine without perforation or abscess without bleeding
CPT/HCPCS: 45385

== ENCOUNTER 2024-08-07 07:31 | Outpatient (CLI) | payer OTHER, SELFPAY ==
--- NOTE | ~2024-08-07 | MM_ITS ---
PROCEDURE: MM SCREENING [facility] BI W TRINI INDICATION: Asymptomatic, referred for screening mammogram COMPARISON: 06/24/2023 through 04/10/2019 TECHNIQUE: Digital breast tomosynthesis craniocaudal and mediolateral oblique views of Both breasts w ere obtained with computer-aided detection to assist in interpretation of the study. FINDINGS: There are scattered areas of fibroglandular density. No focal dominant mass, architectural distortion, or suspicious microcalcifications are identified. There are no features to suggest malignancy. IMPRESSION: No evidence of malignancy in the breast. Recommend continued screening mammography BI-RADS 1, NEGATIVE Reviewed, dictated and finalized at location B.
--- OUTSIDE RECORDS SUMMARY | 2024-08-07 07:35 | XMS_ITS | Clinical Summary ---
[facility] [address] [place] [id number] Care Team Providers Care Cosmetologist Name Role Phone Jayla Gaxiola MD Primary [...] taken. Assessment & Plan (04/06/2018 2:09 PM BASEBOARD HEATING INSTALLER): Your goal of treatment is to keep TSH , T3 and T4 within normal range. Options of treatment, include LT 4 ( levothyroxine ) ,combination LT 4 plus T3 ( Levothyroxine + Liothyronine ) and natural hormonal preparations, including Bow, Westhroid, etc. Well conducted clinical studies have not shown any difference in outcomes, in terms of symptoms when comparing these different options. Some patients Taking one or other form of treatment still manifest a variety of symptoms, in spite of normal thyroid hormone levels. At an individual levels, some patient feel better with some specific preparation, including Bow. However, many symptoms persist in patient, regardless [...] 01/12/2018 Assessment & Plan (01/12/2018 4:41 PM BASEBOARD HEATING INSTALLER): As indicated by a elevated TPO antibodies [...] on file Legal Sex Female 3:19 PM BASEBOARD HEATING INSTALLER Gender Identity Not on file Sexual Orientation [...] 3:16 PM CDT Height 151.1 cm (4' 11.5) 05/18/2018 3:16 PM CD T Body Mass Index 26.61 05/18/2018 3:16 PM CDT Plan of Treatment Not on file Insurance [employer] OPEN ACCESS Care Teams Cosmetologist Relationship Specialty Start Date End Date Jayla Gaxiola MD [address] [facility] [address] [place] [address] PCP - General Family Medicine 01/06/18
--- OUTSIDE RECORDS SUMMARY | 2024-08-07 07:35 | XMS_ITS | Referral Summary ---
Author Organization [facility] [address] [place] [id number] Care Team Providers Care Desolderer Name Role Phone Jayla Gaxiola MD Primary [...] taken. Assessment & Plan (04/06/2018 2:09 PM ROOF SLATER): Your goal of treatment is to keep TSH , T3 and T4 within normal range. Options of treatment, include LT 4 ( levothyroxine ) ,combination LT 4 plus T3 ( Levothyroxine + Liothyronine ) and natural hormonal preparations, including [place], Westhroid, etc. Well conducted clinical studies have not shown any difference in outcomes, in terms of symptoms when comparing these different options. Some patients Taking one or other form of treatment still manifest a variety of symptoms, in spite of normal thyroid hormone levels. At an individual levels, some patient feel better with some specific preparation, including [place]. However, many symptoms persist in patient, regardless [...] 01/12/2018 Assessment & Plan (01/12/2018 4:41 PM ROOF SLATER): As indicated by a elevated TPO antibodies [...] on file Legal Sex Female 3:19 PM ROOF SLATER Gender Identity Not on file Sexual Orientation [...] Plan of Treatment Not on file Insurance [employer] OPEN ACCESS Care Teams Desolderer Relationship Specialty Start Date End Date Jayla Gaxiola MD [address] [facility] [address] [place] [address] PCP - General Family Medicine 01/06/18
--- OUTSIDE RECORDS SUMMARY | 2024-08-07 07:35 | XMS_ITS | Clinical Summary ---
Author Organization [facility] Address [address] [place] [address] Care Team Providers Care Indirect Sales Exec Name Role Phone Jayla Gaxiola MD Primary Care Provider + Source Comments [facility],non-owned Affiliates and Associated Physician Practices is amultiple site organization consisting of ambulatory clinics and hospital sitesin [place], [place], [place] and [place]. This disclosure is being madepursuant to the Care Everywhere program and may not contain all information available regarding this patient. Last updated 17.[facility] Rolith Social History Tobacco Use Types Packs/Day Years Used Date Smoking Tobacco: Never Assessed Comments Unknown Sex and Gender Information Value Date Recorded Sex Assigned at Not on file Legal Sex Female 6:53 PM PATIENT RELATIONS LIAISON Gender Identity Not on file Sexual Orientation [...] VACCINE (1 of 2) 2011 COVID-19 VACCINE (2023-2 5 season) 2023 DEPRESSION SCREENING 03/07/2024 INFLUENZA VACCINE (Season Ended) 2024 Respiratory Syncytial Virus (RSV) Vaccine Pt: or [...] to complete this topic MENINGOCOCCAL (Group B) VACC INE SHARED DECISION-MAKING Aged Out No longer eligibl e based on patient's age to complete this topic MENINGOCOCCAL GROUPS A/C/Y/W VACCINE Aged Out No longer eligible b ased on patient's age to complete this topic Insurance [facility] Address: [facility] [id number] [place] [address] Care Teams Indirect Sales Exec Relationship Specialty Start Date End Date Jayla Gaxiola MD [address] [place] [address] PCP - General 05/20/09
== END 2024-08-07 07:32 | disposition home or self-care (01) ==
PROVIDERS: PCP Family Medicine; Visit Provider Student in an Organized Health Care Education/Training Program
DX: Z12.31 Encounter for screening mammogram for malignant neoplasm of breast (principal)
CPT/HCPCS: 77063; 77067